=== PATIENT | female | born 1995 ===

== ENCOUNTER 2018-09-15 10:46 | Observation (INO) | payer OTHER, MEDICAID ==
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
[2018-09-15] MEDS ORDERED: ACETAMINOPHEN 500 MG TAB PO ONE (11:19)
[2018-09-15] MEDS ORDERED: ceFAZolin 2 GM/DEXTROSE 100 ML IV ONE (11:19)
[2018-09-15] MEDS ORDERED: GABAPENTIN 300 MG CAP PO ONE (11:19)
[2018-09-15] MEDS ORDERED: PHENAZOPYRIDINE HCL 200 MG TAB PO ONE (11:19)
[2018-09-15] MEDS ORDERED: LR 1,000 ML IV ONE (11:39)
--- NOTE | 2018-09-15 12:47 | PDHPUP ---
History & Physical Update H&P update statement: This history and physical update is based on an assessment of the patient which was completed after admission or registration (within 24 hours), but prior to the surgery/procedure. H&P update: H&P reviewed & patient examined, no change in patient's condition since H&P completed
[2018-09-15] MEDS ORDERED: BUPIVACAINE/EPI 0.5% 30 ML SDV ONE (13:04)
[2018-09-15] MEDS ORDERED: MIDAZOLAM 2 MG/2 ML VIAL IVP ONE (13:04)
--- NOTE | 2018-09-15 13:06 | PDANEPAE ---
ANE History of Present Illness here for endometriosis excision ANE Past Medical History - Cardiovascular History Hx Hypertension: No Hx Arrhythmias: No Hx Chest Pain: No Hx Coronary Artery / Peripheral Vascular Disease: No Hx CHF / Valvular Disease: No Hx Palpitations: No - Pulmonary History Hx COPD: No Hx Asthma/Reactive Airway Disease: No Hx Recent Upper Respiratory Infection: No Hx Oxygen in Use at Home: No Hx Sleep Apnea: No - Neurologic History Hx Cerebrovascular Accident: No Hx Seizures: No Hx Dementia: No - Endocrine History Hx Diabetes: No Hypothyroid: No - Renal History Hx Renal Disorders: No - Liver History Hx Hepatic Disorders: No ANE Review of Systems Review of systems is: negative Review of Systems: - Exercise capacity Exercise capacity: >=4 METS ANE Patient History - Allergies Allergies/Adverse Reactions: chlorpromazine [From Thorazine] Allergy (Verified 09/15/18 11:46) Other-Enter Comments ethinyl estradiol [From Aviane] Allergy (Verified 09/15/18 11:42) gabapentin Allergy (Verified 09/15/18 11:45) Other-Enter Comments ketorolac [From Toradol] Allergy (Verified 09/15/18 11:46) Abdominal Cramping levofloxacin [From Levaquin] Allergy (Verified 09/15/18 05:29) Rash levonorgestrel [From Aviane] Allergy (Verified 09/15/18 11:45) Swelling/neck,face,throat NSAIDS (Non-Steroidal Anti-Inflamma Allergy (Verified 09/15/18 11:45) Other-Enter Comments pregabalin [From Lyrica] Allergy (Verified 09/15/18 11:45) Other-Enter Comments scopolamine Allergy (Verified 09/15/18 11:45) Abdominal Cramping Sulfa (Sulfonamide Antibiotics) Allergy (Verified 09/15/18 05:29) Hives - Home Medications Home medications: home medication list seen and reviewed - NPO status NPO Since - Liquids (Date): 09/14/18 NPO Since - Liquids (Time): 08:30 NPO Since - Solids (Date): 09/14/18 NPO Since - Solids (Time): 19:00 ANE Labs/Vital Signs - Vital Signs Vital Signs: reviewed preoperatively; see RN documention for details Blood Pressure: 90/59 Heart Rate: 71 Respiratory Rate: 16 O2 Sat (%): 95 Height: 147.32 cm Weight: 38.555 kg ANE Physical Exam - Airway Neck exam: FROM Mallampati Score: Class 1 Mouth exam: normal dental/mouth exam - Pulmonary Pulmonary: no respiratory distress - Cardiovascular Cardiovascular: regular rate and rhythym - ASA Status ASA Status: II ANE Anesthesia Plan Anesthesia Plan: general endotracheal anesthesia
[2018-09-15] MEDS ORDERED: PROPOFOL/EMULSION 500 MG/50 ML BOTTLE IV ONE (13:16)
[2018-09-15] MEDS ORDERED: ROCURONIUM 50 MG/5 ML VIAL ONE (13:16)
[2018-09-15] MEDS ORDERED: fentaNYL 100 MCG/2 ML INJ ONE ×2 (13:37→15:28)
[2018-09-15] MEDS ORDERED: SUGAMMADEX SODIUM 200 MG/2 ML VIAL IVP ONE ×2 (14:55)
--- NOTE | 2018-09-15 15:19 | POSTOPPROG ---
Post Op Note Date of Operation: 09/15/18 Surgeon: Yovanny Knapp Marine Geologist: Aury Joseph Anesthesiologist: Red Anesthesia: GET(General Endotracheal) Pre-op Diagnosis: Endmetriosis Post-op Diagnosis: Same Procedure: Robotic excisio of endo, bilat ureterolysis Findings: Endo Inf/Abcess present in the surg proc area at time of surgery?: No EBL: Minimal Complications: None
[2018-09-15] MEDS: fentaNYL 100 MCG/2 ML INJ IVP PRN ×2 (15:27→15:53)
[2018-09-15] MEDS ORDERED: LR 500 ML IV PRN (15:28)
[2018-09-15] MEDS ORDERED: NS 500 ML IV PRN (15:28)
[2018-09-15] MEDS ORDERED: oxyCODONE IR 5 MG TAB PO PRN (15:28)
[2018-09-15] MEDS ORDERED: ALBUTEROL 3 ML DEYVIAL IH PRN (15:28)
[2018-09-15] MEDS ORDERED: HYDROCODONE/APAP 5/325 TAB PO PRN (15:28)
[2018-09-15] MEDS ORDERED: NALOXONE HCL 0.4 MG/ML INJ IVP PRN (15:28)
[2018-09-15] MEDS ORDERED: ONDANSETRON 4 MG/2 ML VIAL IVP PRN ×2 (15:28→16:24)
[2018-09-15] MEDS ORDERED: DEXAMETHASONE 4 MG/ML VIAL IVP PRN (15:28)
--- NOTE | 2018-09-15 15:28 | POSTANESTH ---
Post Anesthetic Evaluation Cardiovascular Status: Normal, Stable Respiratory Status: Normal, Stable Level of Consciousness/Mental Status: Mildly Sleepy, Arousable Pain Control: Adequate, Prn Tx Ordered Nausea/Vomiting Control: Adequate, Prn Tx Ordered Complications Possibly Related to Anesthesia: None Noted
[2018-09-15] MEDS ORDERED: DIAZEPAM 10 MG/2 ML SYR ONE (15:31)
[2018-09-15] MEDS: DIAZEPAM 10 MG/2 ML SYR IVP PRN ×2 (15:33→15:51)
[2018-09-15] MEDS ORDERED: HYDROmorphONE/DILAUDID 1 MG/ML INJ ONE (15:55)
[2018-09-15] MEDS: HYDROmorphONE/DILAUDID 1 MG/ML INJ IVP PRN ×3 (16:01→20:10)
[2018-09-15] MEDS ORDERED: ONDANSETRON DISINTEGRATING 4 MG TAB PO PRN (16:24)
[2018-09-15] MEDS ORDERED: OXYCODONE/APAP 5/325 TAB PO PRN (16:24)
[2018-09-15] MEDS ORDERED: LR 1,000 ML IV SCH (16:30)
[2018-09-15] MEDS ORDERED: diphenhydrAMINE 25 MG CAP PO PRN (18:00)
[2018-09-15] MEDS ORDERED: KETOROLAC 30 MG/1 ML SDV IVP SCH (18:00)
--- NOTE | 2018-09-15 18:35 | GOP ---
[f rep st] OPERATIVE REPORT DATE OF OPERATION: 09/15/2018 SURGEON: Yovanny Knapp MD CLOSING MANAGER: Aury Joseph CFA. ANESTHESIA: General. PREOPERATIVE DIAGNOSIS: 1. Endometriosis. 2. Pelvic pain. POSTOPERATIVE DIAGNOSIS: 1. Endometriosis. 2. Pelvic pain. PROCEDURE PERFORMED: 1. Robotic excision of endometriosis in anterior and posterior cul-de-sac, bilateral pelvic sidewall , and vaginal cuff. 2. Bilateral ureterolysis. 3. Excision of rectal lesion. .. FINDINGS: SPECIMENS: Pelvic peritoneum with endometriosis. ESTIMATED BLOOD LOSS: Less than 20 mL. DESCRIPTION OF PROCEDURE: Patient was taken the operating room and identified. General anesthesia w as administered and found to be adequate. A Brock catheter was placed in the bladder. An 8 mm infraumbilical incision was made with a scalpel. The Veress needle with the CO2 gas flowing was advanced into the peritoneal cavity. The abdomen was then insufflated with carbon dioxide gas. The 8 mm trocar, followed by the laparoscope were then inserted. The upper abdomen was unremarkable. There was no endometriosis seen on either diaphragm, liver, stomach, or upper abdominal bowel. Two lateral ports were placed in the right, 1 on the left under direct visualization. The patient was p laced in Trendelenburg position and the [place] robot docked on the left side. The instruments were brought into the abdominal cavity under direct visualization. Within the pelvis, multiple scattered lesions of endometriosis in the anterior and posterior cul-de-s ac, vaginal cuff, both pelvic sidewalls. The entire posterior cul-de-sac peritoneum from the distal rectum up to the vaginal cuff and laterally to the uterosacral ligaments was completely excised. The re was a lesion on the distal rectum, which extended into the muscularis. This was excised with the scissors. The patient required a bilateral ureterolysis given the endometriosis and adhesions overly ing both ureters. The peritoneum at the pelvic brims was incised. The ureters were gently dissected free and lateralized off the overlying peritoneum and endometriosis from the pelvic brim all the way down to the bladder. Once this was accomplished the entire pelvic sidewall peritoneum was completel y excised bilaterally. Finally, the anterior peritoneum from the symphysis pubis down to the vaginal cuff was completely excised. The pelvis was then irrigated with sterile saline. Hemostasis was present. A small opening was made into the vagina on the left side of the cuff to excise the full thickness of the endometriosis there . The area was closed with a running 2-0 Vicryl suture. The robot was then undocked. The skin was closed with 4-0 Monocryl. Anesthesia was reversed. The patient taken to PACU awake, in stable condi tion. COMPLICATIONS: None. DISPOSITION: Patient stable to PACU. /[id number]/MODL
[2018-09-15] MEDS: DOCUSATE SODIUM 100 MG CAP PO SCH (20:05)
[2018-09-15] MEDS: SIMETHICONE 80 MG TAB CHEW PO SCH ×2 (20:05→22:15)
[2018-09-15] MEDS: ACETAMINOPHEN 500 MG TAB PO SCH (20:11)
[2018-09-16] MEDS: ACETAMINOPHEN 500 MG TAB PO SCH ×2 (00:54→06:31)
[2018-09-16] MEDS ORDERED: PROMETHAZINE HCL 25 MG/ML INJ IVP PRN (01:09)
[2018-09-16] MEDS: HYDROmorphONE/DILAUDID 1 MG/ML INJ IVP PRN (01:22)
[2018-09-16] MEDS: HYDROmorphONE/DILAUDID 2 MG TAB PO PRN ×2 (06:32→07:03)
[2018-09-16] MEDS: DOCUSATE SODIUM 100 MG CAP PO SCH (06:32)
[2018-09-16 06:37] VITALS: BP 110/70
--- NOTE | 2018-09-16 11:07 | GDS ---
[f rep st] DISCHARGE SUMMARY DISCHARGE DIAGNOSES: 1. Endometriosis. 2. Pelvic pain. HISTORY: The patient is a 23-year-old transgender male with a long history of pelvic pain secondary to endometriosis. He had previously undergone a hysterectomy with bilateral salpingo-oophorectomy wi th other surgeons. Unfortunately, not all the endometriosis was treated. As a result, he was taken to the operating room on 09/15/2018, where he underwent excision of all remaining endometriosis. Postoperative course was uneventful. The morning after surgery, he was ambulating, voiding, and tole rating a general diet. He was discharged home with Dilaudid and Tylenol for pain. He was to follow up in the office 2 weeks after discharge. PROCEDURES: 1. Robotic excision of extensive endometriosis. 2. Excision of rectal lesion. 3. Bilateral ureterolysis. 4. Repair of vaginal cuff incision. /[id number]/MODL
== END 2018-09-16 11:28 | disposition home or self-care (01) ==
LOC: FSGY 10:46 → F3N 16:24 → FOB 17:10
PROVIDERS: ADMIT Obstetrics & Gynecology; ATTEND Obstetrics & Gynecology
DX: N80.3 Endometriosis of pelvic peritoneum (principal)
CPT/HCPCS: 58662; G0378; J0690; J1170; J1200; J2250; J2405; J2704; J3010; J3360